=== PATIENT | female | born 2000 | race Two or more races ===

== ENCOUNTER 2025-01-19 07:40 | Inpatient (IN) | payer MEDICAID, SELFPAY ==
[2025-01-19] VITALS (43 sets, daily range): BP systolic 102–115; BP diastolic 56–66; PULSE 66–96; RESP 16; TEMP 36.7–37; O2SAT 97–100; BMI 30.2
[2025-01-19 09:46] LABS: Basophils # (Auto) 0.0 Thou/mm3 (0.0-0.2); Basophils % (Auto) 0 % (0-2.5); Eosinophils # (Auto) 0.1 Thou/mm3 (0.0-0.5); Eosinophils % (Auto) 1 % (0-10); Hematocrit 33.6 % (36.0-46.0); Hemoglobin 12.0 g/dL (12.0-16.0); Immature Granulocytes Auto 0.15 Thou/mm3 (0.00-0.00); Lymphocytes # (Auto) 2.0 Thou/mm3 (1.0-4.8); Lymphocytes % (Auto) 18 % (10-50); Mean Corpuscular HGB Conc 35.7 g/dl (31.0-37.0); Mean Corpuscular Hemoglobin 32.0 pg (25.0-35.0); Mean Corpuscular Volume 90 fL (80-100); Monocytes # (Auto) 0.8 Thou/mm3 (0.0-0.8); Monocytes % (Auto) 7 % (0-12); Neutrophils # (Auto) 8.3 Thou/mm3 (1.8-7.7); Neutrophils % (Auto) 72 % (37-80); Nucleated Red Blood Cell # 0.00 Thou/mm3 (0.00-0.00); Nucleated Red Blood Cell % 0 /100 WBC (0); Platelet Count 354 Thou/mm3 (140-440); RDW Standard Deviation 46.5 fL (36.4-46.3); Red Blood Count 3.75 Miln/mm3 (4.00-5.20); White Blood Count 11.4 Thou/mm3 (3.6-11.0)
[2025-01-19 10:29] LABS: Syphilis Nonreactive (Nonreactive)
[2025-01-19 12:03] LABS: Amphetamine/Metham Scrn,Ur OB Negative (Negative); Benzoylecgonine Screen, Ur OB Negative (Negative); Opiate Screen,Urine OB Negative (Negative); THC Screen,Urine OB Negative (Negative)
--- NOTE | 2025-01-19 12:15 | PD.LDHP ---
Documentation for date of: 01/19/25 OB Labor/Induct. HPI History of Present Illness Date of last menstrual period: 04/06/24 GERHARD: 01/11/25 Gestational age based on last menstrual period: 41 History of present illness: H and P dicated in [facility] on the STAT line #9: [id number] Labs Labs: Positive: Group Beta Strep, Negative: RPR, Hepatitis B, Rubella Titre, HIV, Chlamydia and Gonorrhea and Unknown: Herpes Type 1, Herpes Type 2 and Covid-19 Meds Home Medications and Allergies Home Medications ?Medication ?Instructions ?Recorded ?Confirmed ?Type vitamin-ferrous fumarate 1 tab PO QDAY 08/27/22 01/19/25 History 28 mg iron-folic acid 800 mcg tablet ( Vitamins with Minerals) Allergies Allergy/AdvReac Type Severity Reaction Status Date / Time No Known Drug Allergies Allergy Verified 01/19/25 09:59 OB Exam Physical Exam Vital signs: Temp Pulse BP Pulse Ox 98.1 F 93 102/62 98 01/19/25 08:00 01/19/25 10:10 01/19/25 10:10 01/19/25 12:12 OB Results Labs 01/19/25 08:00 Labs: Short CBC 01/19/25 Range/Units 08:00 WBC 11.4 H (3.6-11.0) Thou/mm3 Hgb 12.0 (12.0-16.0) g/dL Hct 33.6 L (36.0-46.0) % Plt Count 354 (140-440) Thou/mm3
--- NOTE | 2025-01-19 15:19 | ESHP_ITS ---
RE: PATRICIA JESUS : 2000 DATE OF ADMISSION: 01/19/2025 HISTORY OF PRESENT ILLNESS: This is a 24-year-old 3, para 2-0-0-2 with a due date of 01/11 with intrauterine at 41 weeks and 1 day who presents for induction of labor for postdates. The patient denies any leaking or bleeding. She reports normal movement. Recent ultrasound on 12/26 showed the overall growth at the 26th percentile. 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 She was recently treated as an outpatient with antibiotics for dental abscess, which has resolved. MEDICATIONS: multivitamin 1 p.o. daily. ALLERGIES: NO KNOWN DRUG ALLERGIES. 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 FAMILY HISTORY: Maternal cousin, Down syndrome. Second maternal cousin, autism. Father, hepatitis C. Maternal grandmother, diabetes. Mother and maternal aunt, hypertension. OBSTETRIC HISTORY: In 08/2022, 40 weeks, normal vaginal delivery, 7 pounds 12 ounce male, no complications; in 02/2024, 39 weeks, normal vaginal delivery, 7 pounds 12 ounce male, no complications. PAST SURGICAL HISTORY: Denies. REVIEW OF SYSTEMS: She denies any chest pain, palpitations, cough, fever, shortness of breath or lower extremity pain. She denies any headache, change in vision or right upper quadrant pain. PHYSICAL EXAMINATION: VITAL SIGNS: Blood pressure is 102/62, heart rate 88, respirations 18, and temperature 98.7. HEENT: Oropharynx and sclerae are clear. LUNGS: Clear to auscultation bilaterally. HEART: Regular rate and rhythm. ABDOMEN: Gravid, consistent with estimated weight of 7 pounds 12 ounces. PELVIC: See RN notes. EXTREMITIES: Nontender. SKIN: No gross rashes or lesions. NEUROLOGIC: No focal deficit. ASSESSMENT AND PLAN: Intrauterine at 41 weeks and 1 day postdates induction, anticipate normal vaginal delivery. Informed consent was obtained. The patient was made aware of the risks, complications, alternatives, and benefits of operative vaginal delivery and delivery and agrees with these modes of delivery if indicated. DT: 12:02:01 TT: 15:18:00 Ref: [id number] - TID: [id number]
[2025-01-19] MEDS: Ampicillin Inj 2,000 MG in SODIUM CHLORIDE 0.9% (POP) 100 ML 200 MG IV (23:26)
[2025-01-20] VITALS (264 sets, daily range): BP systolic 86–136; BP diastolic 50–88; PULSE 56–104; RESP 16; TEMP 36.5–36.9; O2SAT 86–100
[2025-01-20] MEDS: RINGERS LACTATED 1000 ML 1,000 ML 100 ML IV ×2 (00:03→09:28)
[2025-01-20] MEDS: OXYTOCIN in NS 30 units 30 UNIT/500 ML BAG IV (03:20)
[2025-01-20] MEDS: Ampicillin Inj 1,000 MG in SODIUM CHLORIDE 0.9% (Popper) 50 ML 50 MG IV ×3 (03:48→13:19)
--- NOTE | 2025-01-20 07:24 | PD.LDPN ---
Documentation for date of: 01/20/25 OB Labor Progress Note Pain Control Comments: Epidural Pelvic Exam Dilation (cm): 4.5 Effacement (%): 80 station: -3 Amniotic membrane status: Intact Comments: Per RN exam Contractions Monitor mode: External Contraction frequency: 1-3 Contraction pattern: Coupling Contraction intensity: Moderate Status status: Category l Assessment and Plan Comments: Ancipate
[2025-01-20] MEDS: ACETAMINOPHEN 325 MG TABLET 650 MG PO (08:10)
--- NOTE | 2025-01-20 08:59 | ESHP_ITS ---
RE: PATRICIA JESUS : 2000 DATE OF ADMISSION: 01/18/2025 HISTORY OF PRESENT ILLNESS: This is a 24-year-old 3, para 2-0-0-2 with due date of 01/11/2025 with intrauterine at 41 weeks and 1 day. On 01/19/2025, she presents for induction of labor for post dates. The patient denies any leaking or bleeding. She reports normal movement. She reports occasional contractions. Group B strep carrier. ALLERGIES: NO KNOWN DRUG ALLERGIES. MEDICATIONS: multivitamin 1 p.o. daily. SOCIAL HISTORY: She denies any alcohol, drug use, or smoking. PAST MEDICAL HISTORY: Dental abscess. FAMILY HISTORY: Diabetes, hypertension, stroke, autism and Down syndrome, hepatitis C. OBSTETRIC HISTORY: Two previous full-term normal vaginal deliveries. PAST SURGICAL HISTORY: Denies. REVIEW OF SYSTEMS: She denies any chest pain, palpitations, cough, fever, shortness of breath, or lower extremity pain. PHYSICAL EXAMINATION: VITAL SIGNS: Blood pressure 114/73, heart rate 88, respirations 18, temperature 98.6, weight 176 pounds. HEENT: Oropharynx and sclerae are clear. LUNGS: Clear to auscultation bilaterally. HEART: Regular rate and rhythm. ABDOMEN: Gravid. Term size consistent with estimated weight 8 pounds. PELVIC: Cervix 1.5 cm, 40% - 3, vertex intact. EXTREMITIES: Nontender. SKIN: No gross rashes or lesion. NEUROLOGIC: No focal deficit. ASSESSMENT AND PLAN: Intrauterine at 41 weeks and 1 day, induction of labor, anticipate spontaneous vaginal delivery. Informed consent was obtained. The patient was made aware of the risks, complications, alternatives, and benefits of the proposed procedure and she agrees. She is aware of the risk of operative vaginal delivery and delivery. Agrees with these modes of delivery if indicated. DT: 08:27:31 TT: 10:02:00 Ref: [id number] - TID: [id number]
--- NOTE | 2025-01-20 11:39 | PD.LDPN ---
Documentation for date of: 01/20/25 OB Labor Progress Note Pain Control Comments: Epidural Pelvic Exam Dilation (cm): 5.0 Effacement (%): 80 station: -3 Amniotic membrane status: Intact Comments: Vtx: Too high to perform AROM. Contractions Monitor mode: External Contraction frequency: 2-3 Contraction pattern: Coupling Contraction intensity: Moderate Status status: Category l Assessment and Plan Comments: Continue with Pitocin induction of labor
[2025-01-20] MEDS: LIDOCAINE HCL 1% 20 ML VIAL INFL (14:03)
[2025-01-20] MEDS: OXYTOCIN in NS 20 units 20 UNIT/1,000 ML BAG 125 UNIT IV (14:04)
--- NOTE | 2025-01-20 14:13 | PD.LDDS ---
DS: Providers Provider Date of admission: 01/19/25 07:40 Primary care physician: Physician No Primary/Family Admitting Provider: Dennis Way MD Attending Provider on Admission: Dennis Way MD Attending Provider on DC: Dennis Way MD Discharging Provider: Dennis Way MD DS: Diagnosis Discharge Diagnosis (1) Normal labor and delivery: Status: Acute (2) Vulvar edema: Status: Acute Problem List Completed Was Problem List Reviewed/Reconciled?: Yes Summary/Hosp Course Brief History: H and P dicated in [facility] on the STAT line #9: [id number] Peripartum Data Delivery Method: Normal Vaginal Delivery Episiotomy Description: None Time Spent with Patient Time attestation: Total time spent providing and/or coordinating discharge services: Exam Vital Signs Temp Pulse Resp BP Pulse Ox O2 Del Method 97.7 F 88 16 136/71 H 97 Room Air 01/20/25 10:39 01/20/25 14:11 01/19/25 19:39 01/20/25 14:11 01/20/25 14:11 01/19/25 19:15 Discharge Plan Plan Patient Disposition: HOME (Self Care) Patient condition on transfer: Stable Prescriptions/Referrals Prescriptions/Med Rec: New ibuprofen 600 mg tablet 600 mg PO Q6H PRN (Reason: pain) Qty: 30 0RF No Action vit-iron fum-folic ac [ Vitamin with Minerals] 28 mg iron- 800 mcg Tablet 1 tab PO QDAY Referrals: No Primary/Family,Physician [Primary Care Provider] Patient/Caregiver Discharge Instructions Discharge Activity: activity as tolerated Other Discharge Activity Instructions:: Follow up office 6 weeks. Print Language: [place] Stand Alone Forms: Sally Award Info., Patient Portal Info Letter Planned Discharge Date 01/21/25
[2025-01-20] MEDS: TRANEXAMIC ACID 1,000 MG IVPB 1,000 MG/100 ML BAG 200 MG IV (14:17)
[2025-01-20] MEDS: IBUPROFEN TAB 400 MG TABLET 800 MG PO ×2 (14:18→21:45)
[2025-01-20 20:29] LABS: Basophils # (Auto) 0.0 Thou/mm3 (0.0-0.2); Basophils % (Auto) 0 % (0-2.5); Eosinophils # (Auto) 0.0 Thou/mm3 (0.0-0.5); Eosinophils % (Auto) 0 % (0-10); Hematocrit 29.0 % (36.0-46.0); Hemoglobin 10.0 g/dL (12.0-16.0); Immature Granulocytes Auto 0.13 Thou/mm3 (0.00-0.00); Lymphocytes # (Auto) 1.2 Thou/mm3 (1.0-4.8); Lymphocytes % (Auto) 6 % (10-50); Mean Corpuscular HGB Conc 34.5 g/dl (31.0-37.0); Mean Corpuscular Hemoglobin 31.2 pg (25.0-35.0); Mean Corpuscular Volume 90 fL (80-100); Monocytes # (Auto) 1.9 Thou/mm3 (0.0-0.8); Monocytes % (Auto) 9 % (0-12); Neutrophils # (Auto) 16.8 Thou/mm3 (1.8-7.7); Neutrophils % (Auto) 84 % (37-80); Nucleated Red Blood Cell # 0.00 Thou/mm3 (0.00-0.00); Nucleated Red Blood Cell % 0 /100 WBC (0); Platelet Count 295 Thou/mm3 (140-440); RDW Standard Deviation 45.9 fL (36.4-46.3); Red Blood Count 3.21 Miln/mm3 (4.00-5.20); White Blood Count 20.0 Thou/mm3 (3.6-11.0)
[2025-01-21] VITALS: BP 100/65; PULSE 75; RESP 18; TEMP 36.9; O2SAT 97
[2025-01-21] MEDS: HYDROcodone/APAP 5/325 TABLET 1 TAB PO ×2 (03:43→11:18)
[2025-01-21 03:56] VITALS: BP 110/75; PULSE 79; RESP 16; TEMP 36.4; O2SAT 97
--- NOTE | 2025-01-21 06:58 | OBDSUM_ITS ---
Data ([facility]) Data Hx Section: No : 3 Term: 1 : 0 Livin Abortions: Spontaneous & Theraputic: 0 Delivery Data ([facility]) Labor Data Initiation of labor: Induction Induction/Augmentation Agent: Cervidil, Pitocin and Artificial ROM ROM date: 01/20/25 ROM time: 13:49 Amniotic membrane rupture type: Artificial Amniotic fluid description: Clear Delivery Data EDC: 01/11/25 EDC calculated by:: LMP/early US confirmation Onset of labor date: 01/19/25 Onset of labor time: 10:42 Complete dilation date: 01/20/25 Complete dilation time: 13:51 delivery date: 01/20/25 [place] delivery time: 13:52 Gestational age (weeks): 41 Gestational age (days): 2 Placenta delivery date: 01/20/25 Placenta delivery time: 13:56 Stage 1 total time: Labor - Stage 1 Duration 27 hours and 9 minutes Delivered by: dr dc Delivery nurse: lynn Donahueorn nurse: kaushik garcia Diffusion Operator at delivery: No Support person(s) at delivery: fob, grandmother Other staff at delivery: student Delivery Method Delivery method: Normal Vaginal Delivery Presentation: Vertex Anesthesia Type Anesthesia Type: Epidural Placenta Placenta delivery description: Spontaneous Cord blood sent to lab: Yes cord blood collection: Cord Blood Type Episiotomy Episiotomy description: None Lacerations #1: Perineal: 2nd degree EBL Estimated blood loss (ml): 150 Umbilical Cord cord description: 3 Vessels Additional Procedures None Complications Complications: None [place] Data ([facility]) [place] Data order: 1 [place]'s gender: Male Identification band number: [id number] weight (gms): 7 lb 10.048 oz Weight (pounds): 7 lbs and 10.0 ozs length: 19.5 in 1 minute: 8 5 minutes: 9
--- NOTE | 2025-01-21 07:24 | ESPR_ITS ---
RE: PATRICIA JESUS : 2000 DATE OF SERVICE: 01/21/2025 S: The patient denies any problem or complaints. She is voiding and ambulating and tolerating regular diet and passing flatus. She denies any excessive vaginal bleeding. She denies any dizziness or lightheadedness. She denies any chest pain, palpitations, shortness of breath or lower extremity pain. O: Vital Signs: Blood pressure 110/75, heart rate 79, respirations 16, temperature 97.6, pulse ox is 97% on room air. Lungs: Clear to auscultation bilaterally. Heart: Regular rate and rhythm. Abdomen: Fundus is firm, nontender. Extremities: Nontender. LABORATORY DATA: Hemoglobin pre-delivery is 12.0, post delivery is 10.0. ASSESSMENT: day #1 status post spontaneous vaginal delivery. P: Discharge home when baby is cleared. Discharge instructions given. Follow up in the office in 6 weeks. DT: 06:57:13 TT: 07:22:00 Ref: [id number] - TID: [id number]
[2025-01-21 07:50] VITALS: BP 115/75; PULSE 85; RESP 16; TEMP 36.8; O2SAT 98
[2025-01-21 11:00] VITALS: BP 114/74; PULSE 68; RESP 18; TEMP 36.6; O2SAT 99
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
== END 2025-01-21 14:34 | disposition home or self-care (01) | DRG 560 ==
LOC: S4SX 01-20 16:22 → S4NX 01-20 17:08
PROVIDERS: Admitting Provider Specialist; Visit Provider Specialist
DX: O48.0 Post-term pregnancy (principal); Z37.0 Single live birth; Z3A.41 41 weeks gestation of pregnancy; O99.824 Streptococcus B carrier state complicating childbirth; O70.1 Second degree perineal laceration during delivery
CPT/HCPCS: 36415; 59409; 80307; 85025; 86780; 86850; 86900; 86901; 94762; J0290; J2590; J2795; J3010; J3490; J7050; J7120; A9270